=== PATIENT | male | born 1980 | race Caucasian/White ===

== ENCOUNTER 2020-12-29 23:26 | Emergency (ER) | payer BC, OTHER ==
[~2020-12-29] VITALS: Ht 180.3 cm; Wt 79.4 kg
--- NOTE | 2020-12-29 23:38 | NUR ---
PT AAOX4. BIBSELF C/O LEFT TOE 2ND DIGIT PAIN. POSSIBLE TOE DISLOCATION. AWAITING ER MD FOR EVAL AND ORDERS.
[2020-12-30] MEDS ORDERED: BUPIVACAINE 0.5 % PF 150 MG/30 ML VIAL ONE (00:18)
[2020-12-30] MEDS ORDERED: LIDOCAINE /MPF 1% VIAL 5 ML VIAL ONE (00:18)
--- NOTE | 2020-12-30 00:57 | NUR ---
RADIOLOGY AT BEDSIDE
--- NOTE | 2020-12-30 01:42 | NUR ---
Patient discharged to home in stable condition. Written and verbal after care instructions given. Patient verbalizes understanding of instruction. EMT leeann taped pt's toe.
[2020-12-30 01:43] VITALS: BP 118/72
== END 2020-12-30 01:43 | disposition home or self-care (01) ==
LOC: ER 23:32
DX: S93.115A Dislocation of interphalangeal joint of left lesser toe(s), initial encounter (principal); Z88.1 Allergy status to other antibiotic agents; W22.8XXA Striking against or struck by other objects, initial encounter; Y93.01 Activity, walking, marching and hiking; Y92.89 Other specified places as the place of occurrence of the external cause; Y99.8 Other external cause status
CPT/HCPCS: 28660; 73620; 73660; 99284; J3490 ×2